=== PATIENT | female | born 1945 | race Caucasian/White ===

== ENCOUNTER 2021-07-11 08:57 | Emergency (ER) | payer MEDICARE ==
[~2021-07-11] VITALS: Ht 162.6 cm; Wt 55.0 kg
--- NOTE | 2021-07-11 09:05 | PHYS DOC ---
General Adult HPI: HPI: Patient is a 75 year old female who presents with generalized upper and mid abdominal pain as well as nausea and vomiting. She denies constipation or diarrhea. She denies urinary symptoms. She denies hematemesis. She does describe some lower chest pain radiating from her abdomen as well. The pain radiates through to her back occasionally. She denies any specific lower abdominal pain. She denies dyspnea, pleuritic pain, cough, hemoptysis, dizziness, diaphoresis. Symptoms began rather abruptly this morning. She denies recent sick contacts or travel history. She had been feeling well last night and earlier this morning prior to onset of her symptoms. She denies fevers or chills. Review of Systems: Review of Systems: Constitutional: Denies fever or chills. [] HENT: Denies nasal congestion or sore throat. [] Respiratory: Denies cough or shortness of breath. [] Cardiovascular: Denies chest pain or edema. [] GI: Generalized epigastric and mid abdominal pain. Denies constipation or diarrhea. Nausea and vomiting. She denies hematemesis, melena, hematochezia peer : Denies urinary symptoms Musculoskeletal: Denies back pain or joint pain. [] Integument: Denies rash. [] Neurologic: Denies headache, focal weakness or sensory changes. [] Psychiatric: Denies depression or anxiety. [] Heart Score: C/O Chest Pain: Yes HEART Score for Chest Pain: HEART Score for Chest Pain Response (Comments) Value History Slighlty/Non-Suspicious 0 ECG Nonspecific Repolarizatio 1 Age > 65 2 Risk Factors 1 or 2 Risk Factors 1 Troponin < Normal Limit 0 Total 4 Risk Factors: Risk Factors: DM, Current or recent (<one month) smoker, HTN, HLP, family history of CAD, obesity. Risk Scores: Score 0 - 3: 2.5% MACE over next 6 weeks - Discharge Home Score 4 - 6: 20.3% MACE over next 6 weeks - Admit for Clinical Observation Score 7 - 10: 72.7% MACE over next 6 weeks - Early Invasive Strategies Physical Exam: PE: Constitutional: Well developed, well nourished, no acute distress, non-toxic appearance. [] HENT: Normocephalic, atraumatic Eyes: Sclera are clear and anicteric Neck: Normal range of motion, no tenderness, supple, no stridor, trachea is midline Cardiovascular:Heart rate regular rhythm, +2 radial and +2 posterior tibial pulses bilateral Lungs & Thorax: Bilateral breath sounds clear to auscultation [] Abdomen: Abdomen is soft, nondistended, tender to palpation in the epigastric and periumbilical area. No CVA tenderness. Mild voluntary guarding only, no rebound tenderness, no rigidity, no lower abdominal tenderness. No flank or abdominal ecchymoses. No palpable masses organomegaly. No palpable pulsatile mass. No audible bruit. Skin: Warm, dry, no erythema, no rash. Jaundice. Back: No tenderness, no CVA tenderness. [] Extremities: No tenderness, no cyanosis, no clubbing, ROM intact, no edema. No calf tenderness. Neurologic: Alert and oriented X 3, normal motor function, normal sensory function, no focal deficits noted. [] Psychologic: Affect normal, judgement normal, mood normal. Pleasant and cooperative. EKG: EKG: EKG is interpreted at 0926 Rhythm is sinus bradycardia Rate is 53 bpm [place] is normal No STEMI Radiology/Procedures: Radiology/Procedures: IMAGING REPORT Signed PATIENT: ОЛЬГА RICHMOND JACCOUNT: [id number] : 1945 LOCATION: ER AGE: 75 SEX: F EXAM STATUS: REG ER ORD. PHYSICIAN: STEFFANIE YOUNG DO REASON: chest pain, abd pain, n/v PROCEDURE: CT CHEST ABD PELVIS W/CONTRAST EXAM: CT Chest, Abdomen and Pelvis with IV contrast CLINICAL HISTORY: Reason: chest pain, abd pain, n/v COMPARISON: None. TECHNIQUE: Helical CT of the chest, abdomen and pelvis was performed following the administration of intravenous contrast. Axial, coronal and sagittal reformatted images were generated. ---PQRS compliance statement - One or more of the following individualized dose reduction techniques were utilized for this study: 1. Automated exposure control 2. Adjustment of the mA and/or kV according to patient size 3. Use of iterative reconstruction technique--- FINDINGS: Chest: No axillary lymphadenopathy. No mediastinal or hilar lymphadenopathy. Heart is not enlarged. No pericardial effusion. Coronary calcifications are seen. Calcified mediastinal and hilar lymph nodes are seen. No pleural effusion. No pneumothorax. Linear and bandlike opacities lower lobes likely scarring/atelectasis. 3 mm right upper lobe lung nodule (image 19). Abdomen and Pelvis: Liver and biliary system: No focal liver lesion. Cholecystectomy clips are seen. No biliary ductal dilatation. Spleen: Calcified granuloma are seen within the spleen. Pancreas: Unremarkable Adrenal glands: Unremarkable Kidneys: Symmetric nephrograms. No hydronephrosis. No hydroureter. Lymph nodes/retroperitoneum: No abdominal or pelvic lymphadenopathy. Vessels: Aorta is normal in caliber with atherosclerotic calcifications. Bowel/Peritoneal cavity: Moderate to large volume colonic stool content is seen. Appendix is not seen. No abdominal or pelvic ascites. Abdominal wall: Trace fat-containing periumbilical hernia. Bladder: Bladder is unremarkable. Bones: Degenerative changes of the spine are seen. No aggressive osseous lesion is seen. Degenerative changes of the spine, L5-S1 disc calcifications are seen. IMPRESSION: 1. Dependent opacities left greater than right lower lobes likely scarring/atelectasis. 2. 3 mm right upper lobe lung nodule. Per Fleischner Society guidelines for incidentally found solid nodules measuring less than 6 mm, no follow-up is ne cessary if patient is considered at low risk for lung cancer. If patient is considered to be at high risk, such as with history of smoking, then CT follow- up in about 12 months can be considered. 3. Cholecystectomy clips are seen. No biliary ductal dilatation. 4. Moderate to large volume colonic stool content in the correlated for possible constipation. 5. Trace fat-containing periumbilical hernia. Electronically signed by: Jesus Zhou MD (07/11/2021 3:11 PM) [facility] DICTATED and SIGNED BY: JESUS ZHOU MD DATE: 07/11/21 [id number] 0 Course & Med Decision Making: Course & Med Decision Making Pertinent Labs and Imaging studies reviewed. (See chart for details) The patient is given IV fluids, IV fentanyl, IV Zofran. She has a history of having some subjective dyspnea when being given iodinated contrast media, no anaphylaxis, no facial or oral swelling, no airway compromise or history of anaphylaxis, and she has done well with subsequent contrast studies, including CT imaging and cardiac catheterization if she is received pretreatment. Patient is therefore given IV Pepcid, IV Solu-Medrol and IV Benadryl. There was some significant delay in taking her to get her CT scan secondary to what appears to have been poor communication between the cath lab radiology technician and the radiologist. I had personally spoken with the radiology physician assistant and explained the patient's previous issues with contrast media, and I explained very specifically what the patient was pretreated with and that she has done well with studies in the past. There was a several hour delay secondary to apparently the tech telling the radiologist that the patient had sustained more serious side effects with contrast media, so apparently the radiologist declined to perform the study. After several hours I was able to finally speak with the radiologist and explained the issue, and the patient proceeded with CT imaging with contrast without any difficulty whatsoever. I apologized to the patient for the delay. I discussed the findings, differential diagnosis and plan of care with her. No acute life-threatening or surgical process noted on exam or imaging studies here. She is feeling much better. She is tolerating oral fluids well, she denies any further pain or nausea symptoms. She feels ready to go home. I discussed home care instructions, dietary instructions. Very strict return precautions are given. She verbalizes understanding is comfortable with the plan of care. 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 She also has a PCP with whom she may follow-up as well. CT imaging shows a right lung nodule, the patient is aware of this, her PCP has been following this, I recommend at least 12-month follow-up CT for further evaluation and comparison. She verbalizes understanding of this. She is discharged in stable and improved condition. Ozzy Disclaimer: Ozzy Disclaimer: This electronic medical record was generated, in whole or in part, using a voice recognition dictation system. Departure Departure Impression: Primary Impression: Generalized abdominal pain Additional Impressions: Nausea and vomiting Qualified Codes: R11.2 - Nausea with vomiting, unspecified Nodule of right lung Disposition: HOME / SELF CARE / HOMELESS Condition: STABLE Patient Instructions: Abdominal Pain (Nonspecific), Nausea and Vomiting, Pulmonary Nodule Additional Instructions: Return to the ER for more severe pain, chest pain, shortness of breath, vomiting blood, temperature 100.4 or higher, uncontrolled vomiting associated with the dehydration or for any other concerns. If your symptoms persist, you may need to see your outpatient gastroenterology doctor. Also, you have a right-sided lung nodule, and I recommend discussing this further with your primary care physician, you may need a repeat CT scan within the next 12 months for comparison purposes. Use the prescription nausea medicine as needed. Eat a b land diet, drink plenty of fluids. Scripts Ondansetron (ONDANSETRON ODT) 4 Mg Tab.rapdis 1 TAB PO PRN Q6-8HRS for vomiting, #24 TAB Prov: STEFFANIE YOUNG DO 07/11/21 STEFFANIE YOUNG DO Jul 11, 2021 09:05
[2021-07-11] MEDS ORDERED: FAMOTIDINE 20 MG/2 ML VIAL IVP ONE (09:45)
[2021-07-11] MEDS ORDERED: fentaNYL PF VIAL 100 MCG/2 ML VIAL IVP ONE (09:45)
[2021-07-11] MEDS ORDERED: ONDANSETRON PF 4 MG/2 ML VIAL. IVP ONE (09:45)
[2021-07-11] MEDS ORDERED: diphenhydrAMINE 50 MG/ML VIAL IVP ONE (09:45)
[2021-07-11] MEDS ORDERED: IV NORMAL SALINE 1000ML BAG 1,000 ML IV ONE (09:45)
[2021-07-11] MEDS ORDERED: methylPREDNISolone SOD SUCC PF 125 MG/2 ML VIAL. IV ONE (09:45)
[2021-07-11 10:05] LABS: BASO % 0 % (0-3); EOS % 1 % (0-3); HEMATOCRIT 39.2 % (36.0-47.0); LYMPH # 0.6 x10^3/uL (1.0-4.8); LYMPH % 11 % (24-48); MEAN CORPUSCULAR HEMOGLOBIN 31 pg (25-35); MEAN CORPUSCULAR HGB CONC 33 g/dL (31-37); MEAN CORPUSCULAR VOLUME 94 fL (79-100); MONO # 0.3 x10^3/uL (0.0-1.1); MONO % 6 % (0-9); NEUT # 4.3 x10^3/uL (1.8-7.7); NEUT % 82 % (31-73); PLATELET COUNT 191 x10^3/uL (140-400); RED BLOOD COUNT 4.17 x10^6/uL (3.50-5.40); RED CELL DISTRIBUTION WIDTH 13.1 % (11.5-14.5); WHITE BLOOD COUNT 5.2 x10^3/uL (4.0-11.0)
[2021-07-11 11:28] LABS: CALCIUM 8.9 mg/dL (8.5-10.1); CREATININE 0.5 mg/dL (0.6-1.0); GFR 120.6; POTASSIUM 4.2 mmol/L (3.5-5.1)
[2021-07-11 11:34] LABS: ALBUMIN 4.3 g/dL (3.4-5.0); ALBUMIN/GLOBULIN RATIO 1.4 (1.0-1.7); MAGNESIUM 2.3 mg/dL (1.8-2.4); TOTAL BILIRUBIN 0.8 mg/dL (0.2-1.0); TOTAL PROTEIN 7.3 g/dL (6.4-8.2)
[2021-07-11] MEDS ORDERED: CONTRAST GIVEN. MC PRN (13:30)
[2021-07-11] MEDS ORDERED: IOHEXOL 300 MG/ML 100ML VIAL. IV ONE (13:30)
--- NOTE | 2021-07-11 15:14 | RAD ---
EXAM: CT Chest, Abdomen and Pelvis with IV contrast CLINICAL HISTORY: Reason: chest pain, abd pain, n/v COMPARISON: None. TECHNIQUE: Helical CT of the chest, abdomen and pelvis was performed following the administration of intravenous contrast. Axial, coronal and sagittal reformatted images were generated. ---PQRS compliance statement - One or more of the following individualized dose reduction techniques were utilized for this study: 1. Automated exposure control 2. Adjustment of the mA and/or kV according to patient size 3. Use of iterative reconstruction technique--- FINDINGS: Chest: No axillary lymphadenopathy. No mediastinal or hilar lymphadenopathy. Heart is not enlarged. No pericardial effusion. Coronary calcifications are seen. Calcified mediastinal and hilar lymph nodes are seen. No pleural effusion. No pneumothorax. Linear and bandlike opacities lower lobes likely scarring/atelectasis. 3 mm right upper lobe lung nod ule (image 19). Abdomen and Pelvis: Liver and biliary system: No focal liver lesion. Cholecystectomy clips are seen. No biliary ductal d ilatation. Spleen: Calcified granuloma are seen within the spleen. Pancreas: Unremarkable Adrenal glands: Unremarkable Kidneys: Symmetric nephrograms. No hydronephrosis. No hydroureter. Lymph nodes/retroperitoneum: No abdominal or pelvic lymphadenopathy. Vessels: Aorta is normal in caliber with atherosclerotic calcifications. Bowel/Peritoneal cavity: Moderate to large volume colonic stool content is seen. Appendix is not see n. No abdominal or pelvic ascites. Abdominal wall: Trace fat-containing periumbilical hernia. Bladder: Bladder is unremarkable. Bones: Degenerative changes of the spine are seen. No aggressive osseous lesion is seen. Degenerative changes of the spine, L5-S1 disc calcifications are seen. IMPRESSION: 1. Dependent opacities left greater than right lower lobes likely scarring/atelectasis. 2. 3 mm right upper lobe lung nodule. Per Fleischner Society guidelines for incidentally found solid nodules measuring less than 6 mm, no follow-up is necessary if patient is considered at low risk for lung cancer. If patient is considered to be at high risk, such as with history of smoking, then CT f ollow-up in about 12 months can be considered. 3. Cholecystectomy clips are seen. No biliary ductal dilatation. 4. Moderate to large volume colonic stool content in the correlated for possible constipation. 5. Trace fat-containing periumbilical hernia. Electronically signed by: Jesus Zhou MD (07/11/2021 3:11 PM) [facility]ABEL
[2021-07-11 16:00] VITALS: BP 131/60
[2021-07-11] MEDS ORDERED: ONDA4TAB12 PO (16:00)
--- NOTE | 2021-07-11 18:09 | EKG ---
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
== END 2021-07-11 16:10 | disposition home or self-care (01) ==
LOC: ER 08:57
DX: R10.84 Generalized abdominal pain (principal); R11.2 Nausea with vomiting, unspecified; K42.9 Umbilical hernia without obstruction or gangrene; R91.1 Solitary pulmonary nodule
CPT/HCPCS: 36415; 71260; 74177; 80053; 83605; 83690; 83735; 84484; 85025; 93005; 96361; 96374; 96375; 99285; J1200; J2405; J2930; J3010; J3490; J7030; Q9967